=== PATIENT | female | born 1975 | race Caucasian/White ===

== ENCOUNTER 2022-05-31 13:09 | Emergency (ER) | payer OTHER, SELFPAY ==
[2022-05-31 13:22] VITALS: BP 123/84; PULSE 110; RESP 18; TEMP 37.7; O2SAT 99
--- NOTE | 2022-05-31 13:33 | ED.URI ---
HPI - URI/Sore Throat General Chief Complaint: Upper Respiratory Infection Stated Complaint: Fever/Cough Time Seen by Provider: 05/31/22 13:30 Source: patient Mode of arrival: ambulatory Limitations: no limitations History of Present Illness HPI Narrative: Shelley is a 46-year-old female patient presenting to the clinic today with complaints of fever, sinus pressure, headache, and cough times 3-4 weeks. She reports that she has already been on a round of doxycycline and Augmentin as well as some prednisone for her symptoms. States that she just finished upper Augmentin today and her symptoms slightly improved however she feels as though there are getting worse again. States she has had a fever 101 at home however she is afebrile in the clinic today MD elicited complaint: cough, rhinorrhea, nasal congestion and sinus pain Related Data Home Medications Medication Instructions Recorded Confirmed Willow 05/31/22 Augmentin 05/31/22 Flonase 05/31/22 levonorgestrel 21 mcg/24 hours (8 1 device intrauterine ONCE 05/31/22 05/31/22 yrs) 52 mg intrauterine device (Mirena) Allergies Allergy/AdvReac Type Severity Reaction Status Date / Time No Known Allergies Allergy Verified 05/31/22 13:27 Review of Systems Review of Systems: Pertinent positives per HPI. Patient denies any fever, chills, rash, headache, visual changes, dizziness, cough, shortness of breath, chest pain, palpitations, nausea, vomiting, diarrhea, constipation, abdominal pain, or any urinary issues. PMFSH Comments At the time of my signature, I reviewed and agree with the nursing past medical, surgical, social, and family history. There is no relevant family history pertinent to the patient complaint. Exam Narrative: General: Well-developed, well nourished, in no apparent distress Head: Normocephalic, atraumatic Eyes: Pupils equally round and reactive to light bilaterally, EOM intact, sclera and conjunctive clear, no discharge, lids normal Ears: TMs intact and clear, ear canals clear, no drainage, grossly hearing normal. Nose: Nares patent, clear nasal discharge, severe inflammation to the right anterior and posterior turbinates, right-sided ethmoid and maxillary sinus tenderness. Mouth: Oral pharynx without lesions or masses, good dentition, MMM. Postnasal drip Neck: Supple, trachea midline, no enlargement of anterior or posterior cervical nodes, no thyroid masses or goiter palpable. Cardio: Regular rate and rhythm, s1 and s2 normal, no murmur appreciated. Resp: Clear to auscultation bilaterally, no rhonchi, rales, wheezing or rubs Course Course Emergency Course: Portions of this record may have been created with voice recognition software. Level of Care: Express Care Visit Vital Signs Vital signs: Vital Signs Temperature 37.7 C H 05/31/22 13:22 Pulse Rate 110 H 05/31/22 13:22 Respiratory Rate 18 05/31/22 13:22 Blood Pressure 123/84 05/31/22 13:22 Pulse Oximetry 99 05/31/22 13:22 Oxygen Delivery Room Air 05/31/22 13:22 Temperature 37.7 C H 05/31/22 13:22 Pulse Rate 110 H 05/31/22 13:22 Respiratory Rate 18 05/31/22 13:22 Blood Pressure 123/84 05/31/22 13:22 Pulse Oximetry 99 05/31/22 13:22 Oxygen Delivery Room Air 05/31/22 13:22 Vital signs reviewed MDM - URI/Sore Throat MDM Narrative Medical decision making narrative: At the time of visit patient is resting comfortably on the exam table. I suspect she has recurrent sinusitis. Will send in prescription for a 10 day course of prednisone taper. She is already finished Augmentin and doxycycline. Supportive measures were discussed with the patient she voiced understanding discharge instructions agrees to treatment plan. Differential Diagnosis Differential diagnosis: Likely upper respiratory infection, otitis media, sinusitis, viral infection, bronchitis, influenza, pharyngitis and other (COVID) Discharge Plan Discharge Clinical Impressio
== END 2022-05-31 13:38 | disposition home or self-care (01) ==
PROVIDERS: Emergency Provider Nurse Practitioner Family
DX: J32.9 Chronic sinusitis, unspecified (principal)
CPT/HCPCS: 99203; G0463